=== PATIENT | female | born 1980 | race African-American/Black ===

== ENCOUNTER 2023-03-29 12:20 | Outpatient (CLI) | payer OTHER, SELFPAY ==
[2023-03-29 12:56] LABS: Basophils Percent Auto 0.4 % (0.2-1.2); Eosinophils Absolute Auto 0.1 K/mm3 (0-0.3); Eosinophils Percent Auto 0.7 % (0-4.4); Hematocrit 42.2 % (37.0-47.0); Hemoglobin 13.3 g/dL (12.0-15.0); Immature Granulocyte Absolute 0.02 K/mm3 (0.00-0.031); Immature Granulocyte Percent A 0.2 % (0-0.5); Lymphocytes Absolute Auto 2.38 K/mm3 (0.9-3.2); Lymphocytes Percent Auto 28.8 % (18.3-44.2); Mean Corpuscular HGB Conc 31.5 g/dl (32-36); Mean Corpuscular Hemoglobin 27.5 pg (26-34); Mean Corpuscular Volume 87.4 fl (80-100); Mean Platelet Volume 10.7 fl (7.4-10.4); Monocytes Absolute Auto 0.4 K/mm3 (0.1-0.6); Monocytes Percent Auto 5.1 % (2.6-8.5); Neutrophils Absolute Auto 5.4 K/mm3 (1.3-6.7); Neutrophils Percent Auto 64.8 % (45.5-73.1); Platelet Count Result 205 k/mm3 (150-375); Red Blood Count 4.83 M/mm3 (4.2-5.4); Red Cell Distribution Width 14.7 % (11.5-14.5); White Blood Count 8.3 K/mm3 (4.5-10.0)
== END 2023-03-29 12:21 | disposition home or self-care (01) ==
LOC: ANHSURGERY 12:28
PROVIDERS: Visit Provider Obstetrics & Gynecology
DX: D21.9 Benign neoplasm of connective and other soft tissue, unspecified (principal)
CPT/HCPCS: 36415; 85025; 86850; 86900; 86901

== ENCOUNTER 2023-03-30 00:36 | Day surgery (SDC) | payer OTHER, SELFPAY ==
--- NOTE | 2023-03-27 06:49 | PM.IMHP ---
H&P: HPI History of Present Illness Date/Time: 03/27/23 06:49 Chief Complaint: uterine fibroids with pelvic pain Narrative: is a 42-year-old female with large uterine fibroids showed on imaging. She had been on life Mary for some time. Fibroids were very big. Her periods of slow down but her uterus is markedly enlarged. Her hemoglobin has been improved since being on life Mary. Risks and benefits of this procedure reviewed including not exclusive of , aspiration pneumonia, bleeding, transfusion, perforation injury to bowel, bladder, ureters, or other internal organs with the need for open laparotomy. She received the ACOG handout entitled hysterectomy as well as the Kurt handout. She had all questions answered. She asked to proceed Exam Const: General: cooperative, healthy appearing and comfortable Orientation/consciousness: oriented to person, oriented to place and oriented to time HENMT: Head: normal to inspection Chest: Chest palpation & inspection: normal inspection of the chest Resp: Effort & Inspection: normal respiratory effort Cardio: Rate: regular rate Rhythm: regular rhythm Heart sounds: S1 normal heart sound present and S2 normal heart sound present GI: Inspection: normal to inspection ( uterus palpable up to the umbilicus) : External Female Exam: normal external appearance Speculum Exam - Vagina: normal appearance of the vagina Speculum Exam - Cervix: normal appearance of the cervix Bimanual exam- vagina & uterus: enlarged Bimanual Exam- Adnexa, other: normal adnexae ( adnexa unable to be palpated secondary to large size of uterus) Assessment and Plan Assessment and plan (1) Uterine fibroid: Code(s): D25.9 - Leiomyoma of uterus, unspecified Status: Acute Plan robotic total vaginal hysterectomy bilateral salpingectomy
[2023-03-28 12:25] VITALS: BMI 29.6
--- NOTE | 2023-03-28 12:35 | PC.NURSE ---
Report to the Outpatient Waiting Room, entrance under the green pavilion located off [facility], at 0600 on 03-30-23. Planned Procedure Time: 0730. Time changes happen often and if your time is changed the preop area will call you the afternoon before. - You and your visitor will be asked to self-screen and do not enter if you have any COVID symptoms. - A mask is optional within the hospital at this time. Patients may have clear liquids (water, carbonated beverages, clear teas, apple juice) until 3 hours prior to surgery with a maximum of 20 ounces. 0430 - No food from midnight until time of surgery - Infants may have breast milk until 4 hours before surgery, formula 6 hours prior to surgery. - Children will be allowed to drink immediately following surgery. If applicable, please bring a bottle or sippy cup to assist with drinking. Juice, water, soda, and popsicles are readily available. For infants on formula, please bring formula the day of surgery. Pacifiers are allowed. Take the following medications with a SIP of water the morning of surgery: Tylenol if needed DO NOT STOP ANY OF YOUR OTHER PRESCRIPTION MEDICATIONS PRIOR TO SURGERY EXCEPT THE FOLLOWING Medications to discontinue per physician: Ibuprofen Date to take last dose: Per Dr. Jayson Chacon Please no make-up, nail kazakh, hairspray, perfume, deodorant, or body powder the day of surgery. No jewelry (including any body piercings) or valuables the day of surgery, leave them at home. Please take a shower or bath the night before, or the morning of, surgery with an antibacterial soap. Wear comfortable, loose fitting clothing. Children are encouraged to wear pajamas. - Jewelry must be removed prior to entering the operating room. Rings and piercings that are not removed may be cut off. - The hospital will not accept responsibility for valuables. - Please leave all valuables, including medications, at home the day of surgery. If you are going home after surgery, a licensed driver education road instructor must drive you home. - NO public transportation without another adult if you receive anesthesia. - We recommend that an adult stay with you for 24 hours following discharge. - We also recommend that you do not drive, make important decision, drink alcoholic beverages, or take any drugs that were not prescribed by your health care provider for at least 24 hours after your discharge time. For Pediatric surgeries, we recommend two adults accompany the child home. Follow any additional instructions given to you from your surgeon. If you or anyone in your household have experienced Covid symptoms in the past week, please notify your surgeon or the nurse liaison at the phone number below for possible testing. Telephone instructions given to Teena Talavera and asked if any additional questions and then verbalized understanding. Patient advised to call surgeon office or pre surgery nurse liaison [phone] if any additional questions.
[2023-03-30] VITALS (10 sets, daily range): BP systolic 92–152; BP diastolic 55–97; PULSE 53–81; RESP 12–20; TEMP 35.8–37; O2SAT 96–100; BMI 29.9
--- NOTE | 2023-03-30 06:14 | WPDHPUPDATE1 ---
History and Physical Update Update Date/Time: 03/30/23 06:14 History and Physical has been reviewed, including an updated exam of the patient. There are NO changes in the patient's condition. Risks, benefits, and alternatives have been discussed and questions answered. Patient agrees to proceed with procedure.
[2023-03-30] MEDS: ACETAMINOPHEN 500 MG TABLET 1000 MG PO (06:41)
[2023-03-30] MEDS: LACTATED RINGERS 1,000 ML 30 ML IV CONT ×2 (06:41→10:20)
[2023-03-30] MEDS: KETOROLAC 15 MG/ML VIAL (*BKC) IV PUSH (06:41)
[2023-03-30] MEDS: SCOPOLAMINE 1.5 MG PATCH TRANSDERM (06:41)
[2023-03-30 06:42] LABS: Basophils Percent Auto 0.4 % (0.2-1.2); Eosinophils Absolute Auto 0.1 K/mm3 (0-0.3); Hematocrit 39.8 % (37.0-47.0); Hemoglobin 12.5 g/dL (12.0-15.0); Immature Granulocyte Absolute 0.01 K/mm3 (0.00-0.031); Immature Granulocyte Percent A 0.1 % (0-0.5); Lymphocytes Absolute Auto 1.97 K/mm3 (0.9-3.2); Lymphocytes Percent Auto 28.4 % (18.3-44.2); Mean Corpuscular HGB Conc 31.4 g/dl (32-36); Mean Corpuscular Hemoglobin 27.5 pg (26-34); Mean Corpuscular Volume 87.7 fl (80-100); Mean Platelet Volume 10.4 fl (7.4-10.4); Monocytes Absolute Auto 0.5 K/mm3 (0.1-0.6); Monocytes Percent Auto 6.6 % (2.6-8.5); Neutrophils Absolute Auto 4.4 K/mm3 (1.3-6.7); Neutrophils Percent Auto 63.5 % (45.5-73.1); Platelet Count Result 194 k/mm3 (150-375); Red Blood Count 4.54 M/mm3 (4.2-5.4); Red Cell Distribution Width 14.6 % (11.5-14.5); White Blood Count 6.9 K/mm3 (4.5-10.0)
--- NOTE | 2023-03-30 07:13 | WPDANESEPPF ---
Anes - Initial Pre Proc Eval Procedure: Operation Date: 03/30/23 07:30 Proposed Procedures p Robotic Assisted Total Vaginal Hysterectomy with Bilateral Salpingectomy - Moisés Chacon MD Date/Time: 03/30/23 07:13 Surgeon: Moisés Chacon MD Pre Op Diagnosis: enlarge uterus, pain, fibroids Patient Data Age: 42 Gender: F Height: 1.57 m Weight: 74.3 kg Last Vital Signs Temp 97.3 F L 03/30/23 06:52 Pulse 67 03/30/23 06:52 Resp 16 03/30/23 06:52 BP 115/71 03/30/23 06:52 Pulse Ox 100 03/30/23 06:52 Allergies Allergy/AdvReac Type Severity Reaction Status Date / Time No Known Allergies Allergy Verified 03/30/23 06:49 Home Medications Medication Instructions Recorded Confirmed Type acetaminophen 325 mg tablet 325 mg PO Q6H PRN Pain 03/28/23 03/30/23 History (Tylenol) ibuprofen 200 mg tablet 200 mg PO Q6H PRN Pain 03/28/23 03/30/23 History relugolix 40 mg-estradiol 1 1 tablet PO DAILY 03/28/23 03/30/23 History mg-norethindrone acetate 0.5 mg tablet (Myf[place]ree) hydrocodone 5 mg-acetaminophen 325 1 tablet PO Q4H PRN pain #30 tabs 03/30/23 Rx mg tablet Laboratory Tests 03/30/23 06:33 WBC 6.9 K/mm3 (4.5-10.0) RBC 4.54 M/mm3 (4.2-5.4) Hgb 12.5 g/dL (12.0-15.0) Hct 39.8 % (37.0-47.0) MCV 87.7 fl (80-100) MCH 27.5 pg (26-34) MCHC 31.4 L g/dl (32-36) RDW 14.6 H % (11.5-14.5) Plt Count 194 k/mm3 (150-375) MPV 10.4 fl (7.4-10.4) Immature Gran % (Auto) 0.1 % (0-0.5) Neut % (Auto) 63.5 % (45.5-73.1) Lymph % (Auto) 28.4 % (18.3-44.2) [place] % (Auto) 6.6 % (2.6-8.5) Eos % (Auto) 1.0 % (0-4.4) Baso % (Auto) 0.4 % (0.2-1.2) Lymph # (Auto) 1.97 K/mm3 (0.9-3.2) [place] # (Auto) 0.5 K/mm3 (0.1-0.6) Eos # (Auto) 0.1 K/mm3 (0-0.3) Baso # (Auto) 0.0 K/mm3 (0.0-0.1) Abs Immat Gran (auto) 0.01 K/mm3 (0.00-0.031) Absolute Neuts (auto) 4.4 K/mm3 (1.3-6.7) Absolute Nucleated RBC 0.0 K/mm3 (0.0-0.012) Nucleated RBC % 0.0 % (0.0-0.2) Patient hx anesthesia problems: none Family hx anesthesia problems: none Results Review: All pre-operative results and documents have been reviewed as part of the pre-operative evaluation. FORMERLY [facility] Social History Social History Smoking status: Never smoker Second hand tobacco smoke exposure: Yes (mother smokes; but not regularly around) Alcohol intake: current Alcohol use details: sometimes Substance use: never Substance use type: does not use Living arrangements: with family Spiritual care concerns: No Anes - Eval Final PreProcedure Day of Procedure 03/30/23 07:13 Patient weight: normal Heart: regular rate and rhythm Lungs: clear to auscultation Airway: Mallampati scale class II Neurological: alert and oriented Last oral intake: >/= 8 hours ASA classification: II Emergent: no Anesthetic plan: proceed Anesthesia type and monitoring: general ETT and standard monitoring Results Review: All pre-operative results and documents have been reviewed as part of the pre-operative evaluation. Informed Consent: The patient's anesthetic plan and its attendant risks and benefits were discussed with the patient/family/POA. Questions were solicited and answers provided to the satisfaction of the patient/family/POA.
[2023-03-30] MEDS: ceFAZolin 2 GM/D5W 50 ML 2 GM/50 ML BAG IVPB (07:24)
--- NOTE | 2023-03-30 10:03 | W.PM.PROC2 ---
Procedure Note - Detailed Date of Procedure 03/30/23 Pre-op Diagnosis enlarge uterus, pain, fibroids Post-op Diagnosis Same Procedure Performed Robotic total bilateral salpingectomy Surgeon Moisés Chacon MD Anesthesia General Indications 42 year female with a 700g uterus multiple fibroids with bleeding and pain Findings markedly uterus with fibroids. Normal-appearing tubes and ovaries. Description of Procedure Patient was prepped he placed the appeared to for STDs with his posterior fornix vagina. Anterior lip the cervix grasped with single-tooth. Uterus sounded to 14cm. Serial dilatation with fragmented dilators followed by passage of the 10. MIKE and the 3. 0.5 cold cup. Next the 16 [place] catheter was placed and bladder drained clear urine. Weighted speculums were gloves were changed. A supraumbilical incision made the Veress needle passed in the abdomen. Abdomen filled with CO2 gas to 15 of mercury. The 8 trocar advanced in the abdomen. Downside seen. Patient placed in 20? Trendelenburg and left right lateral quadrant incision made. 8Mm trocars advanced under direct visualization assuring no injury. Right upper quadrant incision made the 8 trocar advanced under direct visualization. The robot was docked. The uterus was markedly enlarged with multiple abnormal areas consistent with uterine fibroids. The left ovary and tube were torsed toward the midline to the actual right side of the uterus. The fallopian tube on the left was skeletonized on right clamped burned and brought to level origin of the uterus. In like fashion this was undertaken the left. The utero-ovarian ligaments on the right were then skeletonized clamping burning cutting and bringing this to the uterine round ligament. In like fashion on the left the utero-ovarian ligament was skeletonized conserving the ovary clamped, burned, cut and brought to the level of the round ligament. The round ligaments and grasp on the right. Anteriorly bladder flap was formed by sharply dissecting the peritoneum this was somewhat difficult due to the markedly enlarged size of the uterus the irregularity. This was brought to the opposite round ligament which was clamped, burned, cut. Next cardinal broad ligaments on the left were serially skeletonized clamping burning cutting until the uterine vessels could be seen on the left these were large tortuous. There were individually clamped, burned, cut. In like fashion the cardinal broad ligaments on the right were cut skeletonized clamping burning cutting and bringing this down to the uterine vessels on the right these were individually clamped, burned, cut. Colpotomy incision was made. The uterus was then cut into several pieces as it weighed more than 700g. This was brought serially through the vagina irrigation was undertaken small pieces were removed. The vagina closed with continuous running 0V lock from lateral edge to lateral edge back to the midline. Irrigation subcutaneous layer and the skin closed with 4 Monocryl and glue after removing the robotic and gas and trocars. Blood loss was estimated at25cc. All sponge, needle, instrument counts were correct. There were no immediate complications Estimated Blood Loss 25 Drains No Packing No Pathology Yes Complications No immediate complications Condition Stable Disposition PACU
--- NOTE | 2023-03-30 10:07 | PM.DS ---
DS: Admitting Diagnosis Discharge Date 03/31/2023 Admitting Diagnosis symptomatic uterine fibroids DS: Discharge Diagnosis Discharge Diagnosis (1) Uterine fibroid: Code(s): D25.9 - Leiomyoma of uterus, unspecified Status: Acute DS: Summary Hospital Course Reason for hospitalization: patient was admitted for robotic total vaginal hysterectomy and bilateral salpingectomy on 03/30/2023. Hospital Course: Patient underwent a removal of uterus and tubes. Hospital course unremarkable. She remained afebrile. She was up, voiding without difficulty, eating regular diet, ambulating, general without complaints. Time Spent with Patient Time attestation: Total time spent providing and/or coordinating discharge services: Exam Const: General: cooperative, healthy appearing and comfortable Nutritional Appearance: average body habitus Orientation/consciousness: oriented to person, oriented to place and oriented to time HENMT: Head: normal to inspection Resp: Effort & Inspection: normal respiratory effort Cardio: Rate: regular rate Rhythm: regular rhythm Heart sounds: S1 normal heart sound present and S2 normal heart sound present GI: Inspection: normal to inspection and incision ( Wounds are clean dry and intact) DS: Data Data Completed and Pending Pending studies at discharge: Pending at discharge 03/30/23 09:46 Surgical [PTH] Routine Labs on day of discharge: Labs from last 24 hours 03/30/23 06:33 WBC 6.9 RBC 4.54 Hgb 12.5 Hct 39.8 MCV 87.7 MCH 27.5 MCHC 31.4 L RDW 14.6 H Plt Count 194 MPV 10.4 Immature Gran % (Auto) 0.1 Neut % (Auto) 63.5 Lymph % (Auto) 28.4 [place] % (Auto) 6.6 Eos % (Auto) 1.0 Baso % (Auto) 0.4 Lymph # (Auto) 1.97 [place] # (Auto) 0.5 Eos # (Auto) 0.1 Baso # (Auto) 0.0 Abs Immat Gran (auto) 0.01 Absolute Neuts (auto) 4.4 Absolute Nucleated RBC 0.0 Nucleated RBC % 0.0 Discharge Plan Discharge Patient Disposition: Home, Self-Care Stand Alone Forms: General Discharge Instructions Follow-up/Referrals: Moisés Vallecillo MD [Physician] - Discharge Medications: New hydrocodone-acetaminophen 5-325 mg tablet 1 tablet PO Q4H PRN (Reason: pain) Qty: 30 0RF No Action Myfembree 40-1-0.5 mg Tablet 1 tablet PO DAILY ibuprofen 200 mg Tablet 200 mg PO Q6H PRN (Reason: Pain) acetaminophen [Tylenol] 325 mg Tablet 325 mg PO Q6H PRN (Reason: Pain)
[2023-03-30] MEDS: fentaNYL CITRATE INJ (*CRX) 100 MCG/2 ML VIAL 25 MCG IV PUSH ×4 (10:55→12:00)
[2023-03-30] MEDS: KETOROLAC 30 MG/ML VIAL (*BKC) IV PUSH ×2 (12:40→18:40)
[2023-03-30] MEDS: DEXTROSE 5%/LACTATED RINGERS 1,000 ML 125 ML IV CONT (12:40)
[2023-03-30] MEDS: HYDROcodone/acetaminophen (*CRX) 10-325 MG TABLET 1 TAB PO ×2 (14:30→18:40)
[2023-03-30] MEDS: ONDANSETRON INJ 4 MG/2 ML VIAL IV PUSH (14:30)
[2023-03-30] MEDS: SIMETHICONE 80 MG TAB.CHEW PO ×2 (14:30→17:10)
[2023-03-31] VITALS: BP 104/58; PULSE 84; RESP 16; TEMP 36.8; O2SAT 95
[2023-03-31] MEDS: HYDROcodone/acetaminophen (*CRX) 10-325 MG TABLET 1 TAB PO (00:05)
[2023-03-31 04:28] VITALS: BP 119/73; PULSE 84; RESP 18; TEMP 36.6; O2SAT 100
[2023-03-31] MEDS: HYDROcodone/acetaminophen (*CRX) 5-325 MG TABLET 1 TAB PO ×2 (04:36→09:28)
[2023-03-31] MEDS: IBUPROFEN 600 MG TABLET PO ×2 (04:36→12:25)
[2023-03-31 06:02] LABS: Basophils Percent Auto 0.1 % (0.2-1.2); Eosinophils Percent Auto 0.1 % (0-4.4); Hematocrit 37.6 % (37.0-47.0); Hemoglobin 11.7 g/dL (12.0-15.0); Immature Granulocyte Absolute 0.03 K/mm3 (0.00-0.031); Immature Granulocyte Percent A 0.3 % (0-0.5); Lymphocytes Percent Auto 21.3 % (18.3-44.2); Mean Corpuscular HGB Conc 31.1 g/dl (32-36); Mean Corpuscular Hemoglobin 27.3 pg (26-34); Mean Corpuscular Volume 87.6 fl (80-100); Mean Platelet Volume 11.1 fl (7.4-10.4); Monocytes Absolute Auto 0.8 K/mm3 (0.1-0.6); Monocytes Percent Auto 7.5 % (2.6-8.5); Neutrophils Absolute Auto 7.3 K/mm3 (1.3-6.7); Neutrophils Percent Auto 70.7 % (45.5-73.1); Platelet Count Result 196 k/mm3 (150-375); Red Blood Count 4.29 M/mm3 (4.2-5.4); Red Cell Distribution Width 14.7 % (11.5-14.5); White Blood Count 10.3 K/mm3 (4.5-10.0)
[2023-03-31 08:05] VITALS: BP 104/66; PULSE 65; RESP 18; TEMP 36.8; O2SAT 97
[2023-03-31] MEDS: DOCUSATE SODIUM 100 MG CAPSULE PO (09:28)
[2023-03-31] MEDS: SIMETHICONE 80 MG TAB.CHEW PO (09:28)
[2023-03-31] MEDS: ENOXAPARIN 40 MG/0.4 ML SYRINGE SUB-Q (09:29)
--- NOTE | 2023-03-31 10:23 | PM.GYNPNOP ---
MATH TUTOR - A/P Assessment and plan (1) Uterine fibroid: Code(s): D25.9 - Leiomyoma of uterus, unspecified Status: Acute Assessment and Plan: A: POD#1, doing well. P: Home to f/u 2 weeks. Postoperative Procedures: Procedures Operation Date: 03/30/23 07:30 Actual Procedure Side Surgeon p Robotic Assisted Total Vaginal Hysterectomy with Bilateral Salpingectomy Bilateral Moisés Chacon MD Time Spent With Patient Time: Total time spent is greater than 50% in coordination of care (as documented) at patient's floor/unit and/or counseling patient: Time with patient: less than 15 minutes MATH TUTOR- PN:Subj Post-Op Subjective Date/time seen: 03/31/23 10:23 Interval history: Pain OK. Tolerating diet. Voiding. Would like to go home. Exam Narrative: AVSS I/O OK ABD soft, nontender. Incisions c/d/i. EXT nontender MATH TUTOR - PN: Obj Data Vital Signs Vital Signs: Vital Signs - 24 hr 03/30/23 10:35 03/30/23 10:50 03/30/23 11:05 Temperature Pulse Rate 73 73 53 L Respiratory Rate 14 14 15 Blood Pressure 119/80 119/80 152/97 H Pulse Oximetry 100 100 100 Oxygen Delivery Simple Face Mask Simple Face Mask Simple Face Mask Oxygen Flow Rate 6 6 6 03/30/23 11:20 03/30/23 11:35 03/30/23 11:50 Temperature Pulse Rate 56 L 55 L 59 L Respiratory Rate 12 20 15 Blood Pressure 148/88 H 138/86 140/88 Pulse Oximetry 100 96 97 Oxygen Delivery Simple Face Mask Room Air Room Air Oxygen Flow Rate 6 03/30/23 12:36 03/30/23 20:51 03/30/23 20:51 Temperature 35.8 C L 37.0 C Pulse Rate 81 66 Respiratory Rate 16 18 Blood Pressure 132/78 125/74 Pulse Oximetry 99 99 Oxygen Delivery Room Air Oxygen Flow Rate 03/31/23 00:00 03/31/23 00:00 03/31/23 04:28 Temperature 36.8 C Pulse Rate 84 Respiratory Rate 16 Blood Pressure 104/58 L Pulse Oximetry 95 Oxygen Delivery Room Air Room Air Oxygen Flow Rate 03/31/23 04:28 03/31/23 09:29 Temperature 36.6 C Pulse Rate 84 Respiratory Rate 18 Blood Pressure 119/73 Pulse Oximetry 100 Oxygen Delivery Room Air Oxygen Flow Rate Intake/Output Intake/Output: Intake & Output 03/28/23 03/29/23 03/30/23 03/31/23 23:59 23:59 23:59 23:59 Intake Total 650 300 Output Total 1360 200 Balance -710 100 Meds/Results Medications: Active Medications Generic Name Dose Route Start Last Admin Trade Name Freq PRN Reason Stop Dose Admin Hydrocodone Bitart/Acetaminophen 1 tab 03/30/23 12:12 03/31/23 09:28 Hydrocodone/Acetaminophen (*Crx) 5-325 Mg Tablet PO 1 tab Q3H PRN Administration Pain Rated 5 or Less Hydrocodone Bitart/Acetaminophen 1 tab 03/30/23 12:12 03/31/23 00:05 Hydrocodone/Acetaminophen (*Crx) 10-325 Mg Tablet PO 1 tab Q3H PRN Administration Pain Rated 6 or Greater Docusate Sodium 100 mg 03/30/23 17:00 03/31/23 09:28 Docusate Sodium 100 Mg Capsule PO 100 mg BID MEGHNA Administration Enoxaparin Sodium 40 mg 03/31/23 09:00 03/31/23 09:29 Enoxaparin 40 Mg/0.4 Ml Syringe SUB-Q 40 mg DAILY MEGHNA Administration Dextrose/Lactated Ringer's 1,000 mls @ 125 mls/hr 03/30/23 12:12 03/30/23 12:40 Dextrose 5%/Lactated Ringers IV CONT 125 mls/hr .Q8H MEGHNA Administration Ibuprofen 600 mg 03/30/23 12:12 03/31/23 04:36 Ibuprofen 600 Mg Tablet PO 600 mg Q6H PRN Administration Cramping Ketorolac Tromethamine 30 mg 03/30/23 12:12 03/30/23 18:40 Ketorolac 30 Mg/Ml Vial (*Bkc) IV PUSH 04/04/23 12:11 30 mg Q6H PRN Administration Pain Rated 4-6 Naloxone HCl 0.1 mg 03/30/23 12:12 Naloxone Hcl 0.4 Mg/Ml Vial IV PUSH Q2M PRN Respiratory rate less than 10 Ondansetron HCl 4 mg 03/30/23 12:12 03/30/23 14:30 Ondansetron Inj 4 Mg/2 Ml Vial IV PUSH 4 mg Q6H PRN Administration Nausea And Vomiting Simethicone 80 mg 03/30/23 12:12 03/31/23 09:28 Simethicone 80 Mg Tab.Chew PO 80 mg Q2H
--- NOTE | 2023-03-31 11:20 | P.PNAN_ITS ---
Anes - Prog Note Post-Op Date/Time: 03/31/23 11:20 Cardiovascular status: normal Respiratory status: normal Airway patency: baseline Mental status: baseline Post-Op hydration status: normal Vital Signs: Last Vital Signs Temp 98 F 03/31/23 04:28 Pulse 84 03/31/23 04:28 Resp 18 03/31/23 04:28 BP 119/73 03/31/23 04:28 Pulse Ox 100 03/31/23 04:28 O2 Del Method Room Air 03/31/23 09:29 O2 Flow Rate 6 03/30/23 11:20 Pain Score (VAS): 4 I/O: Intake & Output 03/30/23 03/31/23 03/31/23 23:59 07:59 15:59 Intake Total 100 300 Output Total 1250 200 Balance -1150 100 Laboratory Tests 03/31/23 05:41 03/31/23 05:41 WBC 10.3 H RBC 4.29 Hgb 11.7 L Hct 37.6 MCV 87.6 MCH 27.3 MCHC 31.1 L RDW 14.7 H Plt Count 196 MPV 11.1 H Immature Gran % (Auto) 0.3 Neut % (Auto) 70.7 Lymph % (Auto) 21.3 [place] % (Auto) 7.5 Eos % (Auto) 0.1 Baso % (Auto) 0.1 L Lymph # (Auto) 2.20 [place] # (Auto) 0.8 H Eos # (Auto) 0.0 Baso # (Auto) 0.0 Abs Immat Gran (auto) 0.03 Absolute Neuts (auto) 7.3 H Absolute Nucleated RBC 0.0 Nucleated RBC % 0.0 Post-procedural complaints: nausea Patient Feedback: Patient satisfied with anesthetic care.
== END 2023-03-31 12:33 | disposition home or self-care (01) ==
LOC: ANHSURGERY 06:15 → ANHOB2 12:15
PROVIDERS: Visit Provider Obstetrics & Gynecology
PROC: (CPT 58554; principal; 2023-03-30 07:30)
DX: D25.9 Leiomyoma of uterus, unspecified (principal); Z79.891 Long term (current) use of opiate analgesic
CPT/HCPCS: 58554; S2900; 36415; 85025; 86850; 86900; 86901; 88307; 99199; A9270; J0690; J1100; J1650; J1885; J2250; J2405; J2704; J3010; J7030; J7120; J7121